=== PATIENT | male | born 1950 ===

== ENCOUNTER → 2022-08-23 | Outpatient (CLI) | payer OTHER | LOC: PLD 15:00 → LAB SHORT 15:00 → LAB 15:00 | DX: D23.39 Other benign neoplasm of skin of other parts of face (principal) | CPT/HCPCS: 88305 ==

== ENCOUNTER 2025-02-15 09:19 | Day surgery (SDC) | payer OTHER ==
[2025-02-15] VITALS (13 sets, daily range): BP systolic 94–128; BP diastolic 51–90
[~2025-02-15 09:19] MED LIST: Lactated Ringer's 1,000 ML IV SCH
[2025-02-15] MEDS ORDERED: propofoL 20 ML IV ONE (10:32)
--- NOTE | 2025-02-15 11:24 | NUR ---
2 MISSED ATTEMPTS BY ORD.RMA
--- NOTE | 2025-02-15 11:31 | NUR ---
02/15/25 1131 Jorden Kim CONFIRMED AND REVIEWED H&P, MEDCICATIONS, ALLERGIES, MEDICAL HISTORY, RESPIRATORY HISTORY, VITAL SIGNS, 3-LEAD EKG, CONSENTS, AND PHYSICIAN ORDERS. PATIENT CONFIRMS NPO STATUS AND AGREES WITH SCHEDULED PROCEDURE. MONITOR INTACT WITH CONTINUOUS PULSE OXIMETRY, CAPNOGRAPHY, 3-LEAD EKG, INTERMITTENT BP. SUPPLEMENTAL O2 TO BE TITRATED THROUGHOUT PROCEDURE TO MAINTAIN O2 SATURATION ABOVE 90%. PATIENT DETERMINED TO BE ASA APPROPRIATE FOR PROPOFOL SEDATION PRIOR TO START OF PROCEDURE BY DR. HALE.
--- NOTE | 2025-02-15 12:18 | NUR ---
DISCHARGE NOTE PT A&OX4, BREATHING RA, VSS, NO COMPLAINTS, TOLERATING PO FLUIDS. Patient up to Ambulate independently. Gait steady. Discharge instructions reviewed with patient. Patient verbalizes understanding. Copy given to patient to take home. Discharged via wheelchair to private car for ride home.
== END 2025-02-15 12:18 | disposition home or self-care (01) ==
LOC: ORSCMMR 09:19 → ORD 10:00 → ORSCMMR 10:00
PROVIDERS: Internal Medicine Gastroenterology
PROC: 0DBN8ZX Excision of Sigmoid Colon, Via Natural or Artificial Opening Endoscopic, Diagnostic (ICD-10-PCS; principal; 2025-02-15 10:00)
DX: Z12.11 Encounter for screening for malignant neoplasm of colon (principal); K63.5 Polyp of colon
CPT/HCPCS: 88305; J2704; J7120

== ENCOUNTER 2025-05-10 11:36 | Day surgery (SDC) | payer OTHER ==
[~2025-05-10] VITALS: Ht 188 cm; Wt 106.8 kg
[2025-05-10] MEDS ORDERED: NS 100 ML IV ONE (13:14)
[2025-05-10] MEDS ORDERED: CeFAZolin Sodium 2,000 MG VIAL ONE (13:14)
[2025-05-10] MEDS ORDERED: Midazolam HCl 1MG / ML 2ML Vial ONE (14:01)
[2025-05-10] MEDS ORDERED: FentaNYL Citrate 50 MCG/ML 2 ML Injection ONE (14:01)
[2025-05-10] MEDS ORDERED: Lidocaine HCl 2% 10 ML SDA ONE (14:16)
[2025-05-10] MEDS ORDERED: Ketorolac Tromethamine 30mg Vial ONE (14:31)
[2025-05-10] MEDS ORDERED: Bupivacaine 0.5% HCl 5 MG/ML 30MLVIAL ONE (14:31)
[2025-05-10] MEDS ORDERED: Dexamethasone Sod Phos 10 MG/ML 1ML VIAL ONE (14:32)
[2025-05-10] MEDS ORDERED: Ondansetron HCl 2 MG / ML 2ML Vial ONE (14:32)
[2025-05-10 15:03] VITALS: BP 117/87
--- NOTE | 2025-05-10 15:09 | NUR ---
05/10/25 1509 Awilda Licea PT RATES PAIN TOLERABLE 01/11. PT DENIES NAUSEA. VSS. PT TOLERATING PO FLUIDS AND SNACKS WELL. RN WENT OVER DC INSTRUCTIONS UNTIL ALL QUESTIONS ANSWERED.
== END 2025-05-10 15:15 | disposition home or self-care (01) ==
LOC: ORSCSDS 11:36
PROVIDERS: Orthopaedic Surgery
PROC: 0JNJ0ZZ Release Right Hand Subcutaneous Tissue and Fascia, Open Approach (ICD-10-PCS; principal; 2025-05-10 13:00)
DX: M72.0 Palmar fascial fibromatosis [Dupuytren] (principal); E78.5 Hyperlipidemia, unspecified; E66.9 Obesity, unspecified; Z68.30 Body mass index [BMI] 30.0-30.9, adult
CPT/HCPCS: J0690; J1100; J1885; J2003; J2250; J2405; J2704; J3010; J7120